=== PATIENT | female | born 1990 | race Two or more races ===

== ENCOUNTER 2018-06-08 05:48 | Inpatient (IN) | payer OTHER ==
[~2018-06-08] VITALS: Ht 157.5 cm; Wt 72.6 kg
[2018-06-08] MEDS ORDERED: PRENATAL VITAM1 EAC2 PO (07:01)
== END 2018-06-10 10:05 | disposition home or self-care (01) | DRG 833 ==
LOC: OBS/DEL 05:48 → LDR 12:18 → OBS/DEL 12:18 → OB/GYN 12:18
PROVIDERS: ADMIT Obstetrics & Gynecology
PROC: 4A1HXCZ Monitoring of Products of Conception, Cardiac Rate, External Approach (ICD-10-PCS; principal; 2018-06-08)
DX: O60.03 Preterm labor without delivery, third trimester (principal); Z34.03 Encounter for supervision of normal first pregnancy, third trimester

== ENCOUNTER 2018-07-09 06:00 | Outpatient (CLI) | payer OTHER ==
[~2018-07-09 06:00] MED LIST: PRENATAL VITAM1 EAC2 PO
== END 2018-07-09 11:48 | disposition home or self-care (01) ==
LOC: OBS/DEL 06:00
DX: O60.02 Preterm labor without delivery, second trimester (principal); Z34.02 Encounter for supervision of normal first pregnancy, second trimester

== ENCOUNTER 2018-07-17 07:51 | Inpatient (IN) | payer OTHER ==
[~2018-07-17] VITALS: Ht 157.5 cm; Wt 2.3 kg
[2018-07-20] MEDS ORDERED: CODE1TAB37 PO (09:40)
[2018-07-20] MEDS ORDERED: NAPR500T14 PO (09:41)
== END 2018-07-20 10:30 | disposition home or self-care (01) | DRG 787 ==
LOC: LDR 07:51 → SURG-SUITE 11:57
PROVIDERS: ADMIT Obstetrics & Gynecology
PROC: 4A1HXCZ Monitoring of Products of Conception, Cardiac Rate, External Approach (ICD-10-PCS; 2018-07-17)
PROC: 10D00Z1 Extraction of Products of Conception, Low, Open Approach (ICD-10-PCS; principal; 2018-07-17 10:00)
DX: O64.1XX0 Obstructed labor due to breech presentation, not applicable or unspecified (principal); O41.03X0 Oligohydramnios, third trimester, not applicable or unspecified; Z3A.38 38 weeks gestation of pregnancy; Z37.0 Single live birth